=== PATIENT | male | born 1995 | race Caucasian/White ===

== ENCOUNTER 2019-12-11 21:47 | Emergency (ER) | payer OTHER ==
[~2019-12-11] VITALS: Ht 172.7 cm; Wt 67.1 kg
[2019-12-11 22:05] VITALS: BP 157/72
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
--- NOTE | 2019-12-11 22:14 | ER.PDOC ---
General Chief Complaint: Medical Clearance Stated Complaint: MED CLEARANCE Time seen by MD: 22:12 Source: patient Exam Limitations: no limitations History of Present Illness Initial Comments SI and HI with voices telling him to hurt himself. It has been going on for a long time. Severity: moderate Associated Symptoms: Hallucinating Allergies: Coded Allergies: amoxicillin (Verified Allergy, Unknown, 04/08/15) clavulanic acid (Verified Allergy, Unknown, 04/08/15) Past Medical History Surgical History: no surgical history Social History Alcohol Use: none Drug Use: marijuana Review of Systems Constitutional: no symptoms reported EENTM: no symptoms reported Respiratory: no symptoms reported Cardiovascular: no symptoms reported Gastrointestinal: no symptoms reported Psychiatric/Neurological: see HPI All Other Systems: Reviewed and Negative Physical Exam General Appearance: No acute distress, Anxious Neck: Non-Tender, Full Range of Motion, Supple, Normal Inspection Respiratory: chest non-tender, lungs clear, normal breath sounds, no respiratory distress, no accessory muscle use Cardiovascular: Normal Peripheral Pulses, Regular Rate, Rhythm, No Edema, No Gallop, No JVD, No Murmur Gastrointestinal: Normal Bowel Sounds, No Organomegaly, No Pulsatile Mass, Non Tender, Soft Extremities: Non-Tender, Normal Range of Motion, No Evidence of Trauma, No Edema Neurological/Psychiatric: Depressed Affect Appearance/Memory/Insight: Appropriate Appearance, Appropriate Insight, Neat, No Memory Impairment Behavior/Eye Contact/Speech: Cooperative, Good Eye Contact, Normal Speech, Other (manic) Thoughts/Hallucinations: Normal Thought Pattern, Auditory Hallucinations Skin: Normal Color, Warm/Dry Results/Orders Results/Orders Orders - ZAK MCNEAL MD Cbc With Auto Diff (12/11/19 22:07) Comprehensive Metabolic Panel (12/11/19 22:07) Urinalysis (12/11/19 22:07) Drug Scrn Med W Confirmation (12/11/19 22:07) Alcohol(Ml) (12/11/19 22:07) Ekg-Routine (12/11/19 22:07) Lorazepam (Ativan) (12/11/19 22:16) Lorazepam (Ativan) (12/11/19 22:18) Urine Culture (12/11/19 21:54) Vital Signs Date Time Temp Pulse Resp B/P (MAP) Pulse Ox O2 Delivery O2 Flow Rate FiO2 12/11/19 23:10 99.1 71 16 104/66 (79) 96 Room Air 12/11/19 22:05 99.1 76 18 12/11/19 22:05 99.1 76 18 157/72 (100) 98 Room Air 12/11/19 22:05 99.1 76 18 98 Administered Medications Medications (Trade) Dose Ordered Sig/[place] Route PRN Reason Start Time Stop Time Status Last Admin Dose Admin Lorazepam (Ativan) 1 mg STAT STAT PO 12/11/19 22:18 12/11/19 22:21 DC 12/11/19 22:20 1 MG Laboratory Tests Test 12/11/19 21:54 12/11/19 22:15 Urine Collection Type VOID Urine Color DARK YELLOW (YELLOW) H Urine Appearance CLOUDY (CLEAR) H Urine Bilirubin NEGATIVE MG/DL (NEGATIVE) Urine Ketones 15 mg/dL (NEGATIVE) H Urine Specific [place] 1.025 (1.005-1.035) Urine pH 7.5 (5.0-6.0) Urine Protein 30 mg/dL (NEGATIVE) H Urine Urobilinogen 1.0 (NEGATIVE) H Urine Nitrate NEGATIVE (NEGATAIVE) Urine Leukocyte Esterase 25 /uL TRACE (NEGATIVE) Urine Blood NEGATIVE (NEGATIVE) Urine RBC 0-2 RBC/HPF (NONE SEEN) Urine WBC TNTC WBC/HPF (0-2) H Urine Bacteria FEW (NONE SEEN) H Urine Glucose NEGATIVE (NEGATIVE) Urine Opiates Screen NEGATIVE (c/o300ng/mL) Urine Methadone Screen NEGATIVE (c/o300ng/mL) Urine Barbiturates Screen NEGATIVE (c/o200ng/mL) Urine Phencyclidine Screen NEGATIVE (c/o 25ng/mL) Ur Amphetamine/Methamphetamine NEGATIVE (nc2908nz/mL) Urine MDMA Screen (Ecstasy) NEGATIVE (c/o300ng/mL) Urine Benzodiazepines Screen NEGATIVE (c/o200ng/mL) Urine Cocaine Metabolite Screen NEGATIVE (c/o300ng/mL) Ur Tetrahydrocannabinol (THC) Scrn PRESUMPTIVE POSITIVE (c/o White Blood Count 8.9 10^3/uL (4.5-11.0) Red Blood Count 4.89 10^6/uL (4.50-5.90) Hemoglobin 15.4 g/dL (13.9-16.3) Hematocrit 43.2 % (37.0-53.0) Mean Corpuscular Volume 88.3 fL (78-100) Mean Corpuscular Hemoglobin 31.5 pg (26-34) Mean Corpuscular Hemoglobin Concent 35.6 g/dL (33-36.5) Red Cell Distribution Width 11.6 % (11.5-14.5) Platelet Count 241 10^3/uL (150-400) Mean Platelet Volume 10.9 fL (7.8-11.0) Neutrophils (%) (Auto) 65.7 % (41.0-85.0) Lymphocytes (%) (Auto) 25.0 % (24.0-44.0) Monocytes (%) (Auto) 7.9 % (5.0-12.0) Neutrophils # (Auto) 5.9 10^3/uL (1.8-7.7) Lymphocytes # (Auto) 2.23 10^3/uL1 (1.0-4.8) Monocytes # (Auto) 0.7 10^3/uL (0.3-0.8) Absolute Immature Granulocyte (auto 0.04 10^3 u/L (0-2) Absolute Eosinophils (auto) 0.0 10^3/uL (0.0-0.2) Immature Granulocytes % 0.40 % (0.00-0.50) Eosinophils % 0.4 % (0.0-5.0) Basophils % 0.6 % (0.0-0.2) H Basophils # 0.1 10^3/uL (0.0-0.1) Sodium Level 140 mmol/L (132-145) Potassium Level 3.8 mmol/L (3.6-5.2) Chloride Level 102.0 mmol/L (96-109) Carbon Dioxide Level 28.2 mmol/L (20.0-32) Anion Gap 13.6 Blood Urea Nitrogen 16 mg/dL (7-18) Creatinine 1.14 mg/dL (0.59-1.40) Estimated GFR () 97.2 (>/=60) Est GFR (CKD-EPI)(Non-Afr [place]) 80.3 (>/=60) BUN/Creatinine Ratio 14.0 Glucose Level 78 mg/dL (70-110) Calcium Level 9.6 mg/dL (8.4-10.5) Total Bilirubin 1.4 mg/dL (0.2-1.0) H Aspartate Amino Transferase (AST) 27 U/L (0-35) Alanine Aminotransferase (ALT) 44 U/L (12-78) Alkaline Phosphatase 89 U/L (50-136) Total Protein 8.1 g/dL (6.4-8.2) Albumin 4.6 g/dL (3.4-5.0) Globulin 3.5 Serum Alcohol < 3 mg/dL (0-50) Progress Progress RN from [facility] came and evaluated patient and spoke with Dr. Sheets who is agreeable to outpatient if patient wants it. Discussed with patient and he wants to go home and pursue outpatient treatment. He is calmer after Ativan and feels better. ER DEPART Departure Time of Disposition: 23:37 Disposition: 01 HOME, SELF-CARE Impression: Primary Impression: Bipolar affective disorder, manic Additional Impressions: UTI (urinary tract infection) Marijuana abuse Condition: Improved Referrals: ANABEL AMADOR MD (PCP) PRIMARY CARE PROVIDER Additional Instructions: F/U with IOP on 12/14/19 Bactrim DS Return to ED if you have thoughts of Suicide or worsening condition. Duration or Time Spent with Pa: 60 min Problem Qualifiers Primary Impression: Bipolar affective disorder, manic Current episode severity: unspecified Qualified Codes: F31.10 - Bipolar disorder, current episode manic without psychotic features, unspecified Additional Impressions: UTI (urinary tract infection) Urinary tract infection type: site unspecified Hematuria presence: without hematuria Qualified Codes: N39.0 - Urinary tract infection, site not specified ZAK MCNEAL MD Dec 11, 2019 22:14
[2019-12-11] MEDS ORDERED: ATIVAN ONE (22:16)
[2019-12-11] MEDS ORDERED: ATIVAN PO STA (22:18)
[2019-12-11 22:22] LABS: BASOPHIL # 0.1 10^3/uL (0.0-0.1); BASOPHIL % 0.6 % (0.0-0.2); EOSINOPHIL % 0.4 % (0.0-5.0); LYMPHOCYTES # 2.23 10^3/uL1 (1.0-4.8); MEAN CORP HGB 31.5 pg (26-34); MONOCYTES # 0.7 10^3/uL (0.3-0.8); MONOCYTES % 7.9 % (5.0-12.0); NEUTROPHIL # 5.9 10^3/uL (1.8-7.7); NEUTROPHILS % 65.7 % (41.0-85.0); PLATELET COUNT 241 10^3/uL (150-400); RED CELL DISTRIBUTION WIDTH 11.6 % (11.5-14.5)
--- NOTE | 2019-12-11 22:30 | NUR ---
UPDATE PATIENT CAME OUT OF ROOM AND STATED HE CAN'T BE HERE, WENT TO THE END OF [place] AND SAT IN THE CORNER. PATIENT VERY AGITATED, BOUNCING BACK AND FORTH. STATING HE WANTS TO GO HOME. PD CALLED AND WAS ABLE TO GET PATIENT BACK TO ER #8 FOR EKG AND AGREEING FOR ASSESSENT AT THIS TIME.
[2019-12-11 22:35] LABS: CALCIUM 9.6 mg/dL (8.4-10.5); CARBON DIOXIDE 28.2 mmol/L (20.0-32)
[2019-12-11 22:38] LABS: APPEARANCE,URINE CLOUDY (CLEAR); UA COLOR DARK YELLOW (YELLOW)
[2019-12-11 22:39] LABS: BILIRUBIN,URINE NEGATIVE (NEGATIVE)
--- NOTE | 2019-12-11 22:42 | NUR ---
HARVINDER NEGRONRN IN WITH PATIENT FOR ASSESSMENT
--- NOTE | 2019-12-11 22:42 | PCM.EKG ---
[facility] Test Date: 2019-12-11 Test Time: 22:26:23 Pat Name: DUANE OBRIEN Department: Room: Gender: M Awning Hanger: tg : 1995 Requested By: ZAK MCNEAL Order Number: [id number] Reading MD: Zak MCNEAL Measurements Intervals [place] Rate: 71 P: 68 DC: 164 QRS: 68 QRSD: 101 T: 46 QT: 402 QTc: 437 Interpretive Statements Sinus arrhythmia No previous ECG available for comparison Electronically Signed On 12-17-2019 7:15:45 CDT by Zak MCNEAL Please click the below link to view image of tracing.
--- NOTE | 2019-12-11 23:07 | NUR ---
PT. STATES HE HEARS A VOICE TELLING HIM TO GO LIVE WITH RACH. AT AT TIMES HE FEELS LIKE THAT WOULD BE THE RIGHT THING TO DO SO HE COULD JUST HAVE PEACEFULNESS. HE STATES HE DOES NOT WANT TO HARM PEOPLE UNLESS THEY ARE BAD. HE STATES SOMETIMES IF HE IS LIKE IN A STORE AND A PERSON GETS TO CLOSE TO HIM THEY PASS BY HIM . HE STATES HE THEN WANTS TO BREAK SOMETHING OR THROW SOMETHING. BEFORE THIS ASSESSMENT PT. RAN OUT OF HIS ROOM TO THE LOCKED DOORS,COULDNT GET OUT ,CROUCHED IN THE HALLWAY,SHAKING AND STATING HE JUST WANTS TO GO HOME THEN WAS CONVINCED TO GO BACK TO ROOM FOR ASSESSMENT. PT. 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 HE STATES HE HAS THESE ATTACKS AT TIMES AND NEVER KNOWS WHEN THEY ARE GOING TO HAPPEN. HE STATES TONIGHT WAS A BAD ONE AND HE KNEW HE NEEDS HELP. HE STATES THEY GAVE HIM A PILL HERE AND NOW HE FEELS CALM AND WANTS TO GO HOME IF HE CAN. THIS NURSE WAS UNABLE TO COMPLETE THE ASSESSMENT IN THE COMPUTER DUE TO COMPUTER WOULD NOT LET ME GO ANY FARTURE.
[2019-12-11 23:10] VITALS: BP 104/66
--- NOTE | 2019-12-11 23:20 | NUR ---
[facility] UPDATE MIGDALIA,DERRICK STATES ASSESSMENT IS COMPLETE, STATES PATIENT ISN'T SUICIDAL OR HOMICIDAL. STATES HE IS FEELING "MUCH BETTER" AFTER TAKING THE MEDICATION WE GAVE HIM.
--- NOTE | 2019-12-11 23:25 | NUR ---
DRCarolyn NOTIFICATION DR. BENAVIDES NOTIFIED OF ASSESSMENT OF PT. AND THAT PT. DENIES SI AND HI AT THIS TIME BUT STATES HE IS WILLING TO GO TO IOP CLINIC. PT. IS CALM AND STATES HE FEELS BETTER NOW AFTER TAKING THE MEDICATION HE WAS GIVEN IN ER DEPT. DR. LIVINGSTON STATED IT IS ALRIGHT TO DISCHARGE PT. TO HOME IF HE IS WILLING TO GO TO IOP CLINIC WHEN APPOINTMENT IS MADE. PT. FATHER IS WITH PT. AT THIS TIME. DR. CRESPO WAS NOTIFIED OF DR. BENAVIDES DECISION. DR. CRESPO STATED HE WOULD ALSO TALK TO THE PT. BEFORE HE IS DISCHARGED.
--- NOTE | 2019-12-11 23:30 | NUR ---
DR MIKI NEGRON,RN SPEAKING WITH EDP, STATES DR LIVINGSTON SAID PATIENT IS OK TO GO HOME IF PATIENT AGREES TO OUTPATIENT CARE
[2019-12-11 23:48] VITALS: BP 116/73
== END 2019-12-11 23:48 | disposition home or self-care (01) ==
LOC: ER 21:47
DX: F31.10 Bipolar disorder, current episode manic without psychotic features, unspecified (principal); N39.0 Urinary tract infection, site not specified; F12.10 Cannabis abuse, uncomplicated; Z79.899 Other long term (current) drug therapy; Z88.0 Allergy status to penicillin
CPT/HCPCS: 36415; 80053; 80307; 80320; 80349; 81000; 85025; 87086; 93005; 99284